=== PATIENT | female | born 1940 | race Caucasian/White ===

== ENCOUNTER 2017-07-01 09:58 | Outpatient (CLI) | payer MEDICARE, BC | END 2017-07-01 09:59 | disposition home or self-care (01) | LOC: BICRAD 09:58 | PROVIDERS: ATTEND Nurse Practitioner Family | DX: M47.26 Other spondylosis with radiculopathy, lumbar region (principal); M54.17 Radiculopathy, lumbosacral region | CPT/HCPCS: 72100 ==

== ENCOUNTER 2017-07-19 10:00 | Outpatient (CLI) | payer MEDICARE, BC ==
--- NOTE | 2017-07-19 13:50 | MRI ---
MRI LUMBAR SPINE WITHOUT CONTRAST: COMPARISON: None. CORRELATION: CT lumbar spine 06/18/16. HISTORY: Low back pain. Pain radiates down the right leg x many years. TECHNIQUE: MRI lumbar spine is performed without intravenous Gadolinium administration. Multisequential, multip lanar imaging is performed. FINDINGS: Stable leftward scoliotic curvature of the lumbar spine. Type I Modic changes involving the inferior end plate of T12, superior end plate of L1. There is appropriate T1 marrow signal intensity of the lumbar vertebrae. Vertebral body height is maintained. There is no fracture. No significant STIR h yperintensity to suggest vertebral body edema or ligamentous injury T2 hyperintensities in the left and right renal cortex likely representing small cysts. Right extrar enal pelvis and left extrarenal pelvis are noted. Symmetric signal intensity of the psoas muscles. The conus medullaris terminates at the superior aspect of L1. T12-L1: Desiccation with moderate loss of disk space height. Generalized disk bulge, ligamentum fla vum thickening, and facet hypertrophy result in mild central canal stenosis. Right neural foramen is patent. Moderate left foraminal narrowing. L1-L2: Desiccation with moderate loss of disk space height. Broad-based disk bulge, ligamentum flav um thickening, and facet hypertrophy result in moderate central canal stenosis. The right neural for amen is patent. Moderate to severe left foraminal narrowing. L2-L3: Desiccation with moderate loss of disk space height. Generalized disk bulge, ligamentum flav um thickening, and facet hypertrophy result in moderate central canal stenosis. Moderate bilateral f oraminal narrowing. L3-L4: Desiccation with severe loss of disk space height. Generalized disk bulge, ligamentum flavum thickening, and facet hypertrophy result in moderate central canal stenosis. There is narrowing of the right subarticular zone with partial obscuration of the traversing right L4 nerve root. Moderate right foraminal narrowing. Mild left foraminal narrowing. L4-L5: Desiccation with moderate loss of disk space height. Generalized disk bulge, ligamentum flav um thickening, and facet hypertrophy result in moderate central canal stenosis. Moderate right and m ild left foraminal narrowing. L5-S1: Adequate disk hydration. There is a left subarticular disk protrusion. There is complete ob scuration of traversing left S1 nerve root due to disk material. No significant stenosis of the thec al sac. Right neural foramen is patent. Moderate left foraminal narrowing. IMPRESSION: Degenerative changes of the lumbar spine as above. POS: [facility]
== END 2017-07-19 10:01 | disposition home or self-care (01) ==
LOC: SCSMRI 10:00
PROVIDERS: ATTEND Orthopaedic Surgery Orthopaedic Surgery of the Spine
DX: M47.896 Other spondylosis, lumbar region (principal); M79.606 Pain in leg, unspecified
CPT/HCPCS: 72148

== ENCOUNTER 2017-10-21 05:27 | Emergency (ER) | payer MEDICARE, BC | END 2017-10-21 06:10 | disposition left against medical advice (07) | LOC: ERS 05:27 | DX: Z53.21 Procedure and treatment not carried out due to patient leaving prior to being seen by health care provider (principal) | CPT/HCPCS: 93005 ==

== ENCOUNTER 2017-11-07 09:00 | Outpatient (CLI) | payer MEDICARE, BC | END 2017-11-07 09:01 | disposition home or self-care (01) | LOC: BICMAMMO 09:00 | PROVIDERS: ATTEND Internal Medicine | DX: Z12.31 Encounter for screening mammogram for malignant neoplasm of breast (principal); R92.1 Mammographic calcification found on diagnostic imaging of breast | CPT/HCPCS: 77063; 77067 ==

== ENCOUNTER 2018-06-25 10:50 | Outpatient (CLI) | payer MEDICARE, BC ==
--- NOTE | 2018-06-25 12:59 | RAD ---
PA AND LATERAL VIEWS CHEST: HISTORY: Shortness of breath, cough. FINDINGS: Comparison is made with the exam of 07/15/2007. The heart size is normal. The aorta is tortuous. The lungs are expanded without lobar consolidation , pneumothoraces, or pleural effusions. There are degenerative changes in the spine. IMPRESSION: No radiographic evidence of acute cardiopulmonary process. POS: [facility]
== END 2018-06-25 10:51 | disposition home or self-care (01) ==
LOC: BICRAD 10:50
PROVIDERS: ATTEND Internal Medicine Cardiovascular Disease
DX: R06.02 Shortness of breath (principal)
CPT/HCPCS: 71046

== ENCOUNTER 2018-12-26 12:36 | Emergency (ER) | payer MEDICARE, BC ==
--- NOTE | 2018-12-26 15:31 | ULT ---
LEFT LOWER EXTREMITY DOPPLER VENOUS ULTRASOUND PROVIDED CLINICAL HISTORY: Left knee pain 1 week; pain behind the left knee TECHNIQUE: Grayscale and color Doppler sonography with spectral analysis was performed of the left common femora l, femoral, popliteal, posterior tibial, greater saphenous and profunda femoral veins. FINDINGS: There is normal compression, flow and augmentation seen within the deep venous structures o f the left lower extremity. IMPRESSION: No sonographic evidence for left lower extremity deep venous thrombosis.
== END 2018-12-26 15:50 | disposition home or self-care (01) ==
LOC: ERS 12:36
DX: M25.562 Pain in left knee (principal); I49.9 Cardiac arrhythmia, unspecified; I48.91 Unspecified atrial fibrillation; F32.9 Major depressive disorder, single episode, unspecified; F41.9 Anxiety disorder, unspecified; Z79.01 Long term (current) use of anticoagulants; Z79.899 Other long term (current) drug therapy

== ENCOUNTER 2020-03-09 11:19 | Outpatient (CLI) | payer MEDICARE, BC ==
--- NOTE | 2020-03-09 13:07 | RAD ---
LEFT KNEE 4 VIEWS: Date: 03/09/2020 PROVIDED CLINICAL HISTORY: Left knee pain. FINDINGS: No comparisons. Postoperative changes of left total knee arthroplasty are demonstrated, without evidence for hardware loosening or migration. There is no evidence for fracture or other acute osseous abnormality. No sig nificant knee joint capsular distention is evident. Vascular calcifications are seen. IMPRESSION: Status post left total knee arthroplasty without evidence for hardware complication or acute osseous abnormality. POS: [facility]
== END 2020-03-09 11:20 | disposition home or self-care (01) ==
LOC: BICRAD 11:19
PROVIDERS: ATTEND Internal Medicine
DX: M25.562 Pain in left knee (principal); Z96.652 Presence of left artificial knee joint

== ENCOUNTER 2020-08-10 09:41 | Outpatient (CLI) | payer MEDICARE, BC | END 2020-08-10 09:42 | disposition home or self-care (01) | LOC: TBSIIMAG 09:41 | PROVIDERS: ATTEND Nurse Practitioner Family | DX: M47.817 Spondylosis without myelopathy or radiculopathy, lumbosacral region (principal); M47.24 Other spondylosis with radiculopathy, thoracic region; R93.7 Abnormal findings on diagnostic imaging of other parts of musculoskeletal system; M51.36 Other intervertebral disc degeneration, lumbar region; M48.061 Spinal stenosis, lumbar region without neurogenic claudication; M48.07 Spinal stenosis, lumbosacral region | CPT/HCPCS: 72146; 72148 ==

== ENCOUNTER 2021-02-17 10:45 | Outpatient (CLI) | payer MEDICARE, BC | END 2021-02-17 10:46 | disposition home or self-care (01) | LOC: BICMAMMO 10:45 | PROVIDERS: ATTEND Internal Medicine | DX: Z12.31 Encounter for screening mammogram for malignant neoplasm of breast (principal) | CPT/HCPCS: 77063; 77067 ==

== ENCOUNTER 2021-09-06 12:18 | Outpatient (CLI) | payer MEDICARE, BC | END 2021-09-06 12:19 | disposition home or self-care (01) | LOC: TBSIIMAG 12:18 | PROVIDERS: ATTEND Orthopaedic Surgery | DX: M47.26 Other spondylosis with radiculopathy, lumbar region (principal); M47.27 Other spondylosis with radiculopathy, lumbosacral region; M41.9 Scoliosis, unspecified; N28.9 Disorder of kidney and ureter, unspecified | CPT/HCPCS: 72100; 72148 ==

== ENCOUNTER 2022-03-21 10:43 | Outpatient (CLI) | payer MEDICARE, BC | END 2022-03-21 10:44 | disposition home or self-care (01) | LOC: BICMAMMO 10:43 | PROVIDERS: ATTEND Internal Medicine | DX: Z12.31 Encounter for screening mammogram for malignant neoplasm of breast (principal); R92.1 Mammographic calcification found on diagnostic imaging of breast | CPT/HCPCS: 77063; 77067 ==

== ENCOUNTER 2022-10-01 10:33 | Outpatient (CLI) | payer MEDICARE, BC | END 2022-10-01 10:34 | disposition home or self-care (01) | LOC: BICMRI 10:33 | PROVIDERS: ATTEND Specialist | DX: M51.17 Intervertebral disc disorders with radiculopathy, lumbosacral region (principal); M41.9 Scoliosis, unspecified; M48.061 Spinal stenosis, lumbar region without neurogenic claudication; M51.35 Other intervertebral disc degeneration, thoracolumbar region; M47.815 Spondylosis without myelopathy or radiculopathy, thoracolumbar region; M48.05 Spinal stenosis, thoracolumbar region; M24.28 Disorder of ligament, vertebrae; M51.36 Other intervertebral disc degeneration, lumbar region; M25.78 Osteophyte, vertebrae; M47.816 Spondylosis without myelopathy or radiculopathy, lumbar region; M51.26 Other intervertebral disc displacement, lumbar region; M47.27 Other spondylosis with radiculopathy, lumbosacral region; M48.07 Spinal stenosis, lumbosacral region | CPT/HCPCS: 72148 ==

== ENCOUNTER 2022-10-02 11:32 | Outpatient (CLI) | payer MEDICARE, BC ==
[2022-10-02 13:40] LABS: Prothrombin Time 10.4 sec (9.5-12.1)
[2022-10-02 15:07] LABS: %Lymphocytes 25.7 % (18.0-47.0); %Neutrophils 61.2 % (40.0-75.0); Hematocrit 40.6 % (34.9-44.5); Hemoglobin 13.7 g/dL (12.0-15.5); Mean Corpuscular HGB CONC 33.7 g/dL (32.0-36.0); Mean Corpuscular Hemoglobin 33.1 pg (27.0-33.0); Mean Corpuscular Volume 98.1 fl (81.6-98.3); Mean Platelet Volume 9.9 fl (7.4-10.4); Platelet Count 347 10x3/uL (130-400); RBC Distribution Width 12.3 % (11.5-14.5); Red Blood Cell (RBC) Count 4.14 10x6/uL (3.90-5.03); White Blood Cell (WBC) Count 8.1 10x3/uL (3.5-10.5)
[2022-10-02 15:08] LABS: #Basophils 0.1 10x3/uL (0.0-0.2); #Eosinphils 0.1 10x3/uL (0.0-0.5); #Monocytes 0.9 10x3/uL (0.0-1.1); #Neutrophils 4.9 10x3/uL (1.5-8.4); %Basophils 0.6 % (0.0-2.0); %Eosinophils 1.7 % (0.0-6.0); %Monocytes 10.6 % (0.0-10.0)
[2022-10-02 18:02] LABS: Anion Gap 17 mmol/L (10-20); BUN (Urea Nitrogen) 20 mg/dL (9.8-20.1); Calc. Creatinine Clearance 0 mL/min (70-130); Calcium 9.6 mg/dL (7.8-10.44); Carbon Dioxide 21 mmol/L (23-31); Chloride 100 mmol/L (98-107); Estimated GFR 58; Glucose 91 mg/dL (83-110); Potassium 4.3 mmol/L (3.5-5.1); Sodium 134 mmol/L (136-145)
== END 2022-10-02 11:33 | disposition home or self-care (01) ==
LOC: LABBT 11:32
PROVIDERS: ATTEND Orthopaedic Surgery
DX: Z01.818 Encounter for other preprocedural examination (principal); M19.011 Primary osteoarthritis, right shoulder
CPT/HCPCS: 80048; 85025; 85610; 93005; 93010

== ENCOUNTER 2022-10-04 05:45 | Observation (INO) | payer MEDICARE, BC ==
[2022-10-02 12:19] VITALS: BMI 23.9
[2022-10-04] MEDS ORDERED: CEFAZOLIN 2 GM VIAL ONE (05:56)
[2022-10-04] MEDS ORDERED: Vancomycin 1 GM/200 ML (FROZEN) BAG ONE (05:56)
[2022-10-04] MEDS ORDERED: Sodium Chloride 0.9% 200 ML ONE (05:56)
[2022-10-04] MEDS ORDERED: Tranexamic Acid 1,000 MG/10 ML VIAL ONE (05:56)
[2022-10-04] MEDS ORDERED: Ropivacaine 0.2% HCl/PF 20 ML ONE (06:48)
[2022-10-04] MEDS ORDERED: Ropivacaine 0.5% HCl/PF (150 MG/30 ML VIAL) ONE (06:48)
[2022-10-04] MEDS ORDERED: Lidocaine 1% (PF) 30 ML VIAL ONE (06:48)
[2022-10-04] MEDS ORDERED: Midazolam HCl 2 mg/2 ml Vial ONE (06:48)
[2022-10-04] MEDS ORDERED: fentaNYL 50 mcg/mL 1 mL Vial ONE ×2 (06:48→07:10)
[2022-10-04] MEDS ORDERED: Acetaminophen 325 MG TAB PO PRN (07:07)
[2022-10-04] MEDS ORDERED: Bisacodyl 10 MG SUPP PR PRN (07:07)
[2022-10-04] MEDS ORDERED: diphenhydrAMINE 50 MG CAP PO PRN (07:07)
[2022-10-04] MEDS ORDERED: traMADol HCl 50 MG TAB PO PRN ×4 (07:07→08:15)
[2022-10-04] MEDS ORDERED: Zolpidem Tartrate 5 MG TAB PO PRN ×2 (07:07→08:15)
[2022-10-04] MEDS ORDERED: HYDROcodone/Acetaminophen 10/325 mg Tablet PO PRN ×3 (07:07→08:15)
[2022-10-04] MEDS ORDERED: Milk Of Magnesia 30 ML UDCUP PO PRN (07:07)
[2022-10-04] MEDS ORDERED: Ondansetron ODT 4 MG TAB PO PRN (07:07)
[2022-10-04] MEDS ORDERED: Ondansetron PF 4 MG/2 ML Vial IVP PRN ×2 (07:07→08:15)
[2022-10-04] MEDS ORDERED: PROPOFOL 200 MG/20 ML VIAL ONE (07:32)
[2022-10-04] MEDS ORDERED: Lidocaine 1% PF 5 ML VIAL ONE (07:32)
[2022-10-04] MEDS ORDERED: Ondansetron PF 4 MG/2 ML Vial ONE (07:32)
[2022-10-04] MEDS ORDERED: Glycopyrrolate 0.2 MG/ML 5 ML SYRINGE ONE (07:32)
[2022-10-04] MEDS ORDERED: Rocuronium Bromide 10 MG/ML (10ML VIAL) ONE (07:32)
[2022-10-04] MEDS ORDERED: Succinylcholine 200 MG/10 ml SYRINGE FS ONE (07:32)
[2022-10-04] MEDS ORDERED: NEOSTIGMINE 3 MG/3 ML SYR 3 MG/3 ML SYRINGE ONE (07:32)
[2022-10-04] MEDS ORDERED: PHENYLEPHRINE-NS 100 MCG/ML 10 ML SYRINGE ONE (07:32)
[2022-10-04] MEDS ORDERED: fentaNYL 50 mcg/mL 1 mL Vial SLOW IVP PRN (08:06)
[2022-10-04] MEDS ORDERED: Promethazine HCl 25 MG/ML VIAL IM PRN ×2 (08:15→08:22)
[2022-10-04] MEDS ORDERED: Ropivacaine 0.2% 550 ML 550 ML NERVE BLCK SCH (08:15)
[2022-10-04] MEDS ORDERED: Ondansetron HCl/PF 4 MG/2 ML Vial IVP PRN (08:22)
[2022-10-04] MEDS ORDERED: HYDROmorphone 2 MG/ML VIAL SLOW IVP PRN (08:22)
[2022-10-04] MEDS ORDERED: SUGAMMADEX SODIUM 200 MG/2 ML VIAL ONE (08:49)
[2022-10-04] MEDS: Famotidine 20 MG TAB PO SCH ×2 (11:28→21:23)
[2022-10-04] MEDS: Sodium Chloride 0.9% 1,000 ML IV SCH ×2 (11:32→23:57)
[2022-10-04] MEDS: Ketorolac Tromethamine 30 MG/ML VIAL IVP SCH ×3 (12:03→23:57)
[2022-10-04] MEDS: CEFAZOLIN 2 GM in Sodium Chloride 0.9% 100 ML IVPB SCH ×2 (14:48→21:23)
[2022-10-05 04:20] VITALS: TEMP 97.9
[2022-10-05] MEDS: Ketorolac Tromethamine 30 MG/ML VIAL IVP SCH ×2 (05:46→12:20)
[2022-10-05] MEDS: HYDROcodone/Acetaminophen 10/325 mg Tablet PO PRN ×2 (05:59→12:13)
[2022-10-05] MEDS ORDERED: Ropivacaine 0.5% HCl/PF (150 MG/30 ML VIAL) ONE (08:22)
[2022-10-05 08:45] VITALS: BP 137/71
[2022-10-05] MEDS ORDERED: Famotidine 20 MG TAB PO SCH (09:00)
[2022-10-05 10:19] LABS: ALT (SGPT) 9 U/L (8-55); AST (SGOT) 13 U/L (5-34); Albumin 3.5 g/dL (3.4-4.8); Alkaline Phosphatase 34 U/L (40-110); Anion Gap 10 mmol/L (10-20); BUN (Urea Nitrogen) 20 mg/dL (9.8-20.1); Bilirubin, Total 0.9 mg/dL (0.2-1.2); Calc. Creatinine Clearance 50 mL/min (70-130); Carbon Dioxide 24 mmol/L (23-31); Chloride 100 mmol/L (98-107); Estimated GFR 70; Globulin 2.3 g/dL (2.4-3.5); Glucose 138 mg/dL (83-110); Potassium 3.7 mmol/L (3.5-5.1); Protein, Total 5.8 g/dL (5.8-8.1); Sodium 130 mmol/L (136-145)
== END 2022-10-05 13:39 | disposition home or self-care (01) ==
LOC: SDC 05:45 → SURG A 11:09
PROVIDERS: ADMIT Orthopaedic Surgery; ATTEND Orthopaedic Surgery
PROC: 0RRJ0JZ Replacement of Right Shoulder Joint with Synthetic Substitute, Open Approach (ICD-10-PCS; principal; 2022-10-04)
PROC: 0LS30ZZ Reposition Right Upper Arm Tendon, Open Approach (ICD-10-PCS; 2022-10-04)
DX: M19.011 Primary osteoarthritis, right shoulder (principal); I48.91 Unspecified atrial fibrillation; E78.5 Hyperlipidemia, unspecified; I10 Essential (primary) hypertension; G47.00 Insomnia, unspecified; K21.9 Gastro-esophageal reflux disease without esophagitis; Z90.49 Acquired absence of other specified parts of digestive tract; Z90.710 Acquired absence of both cervix and uterus; Z98.49 Cataract extraction status, unspecified eye; Z98.51 Tubal ligation status; Z98.890 Other specified postprocedural states; Z88.8 Allergy status to other drugs, medicaments and biological substances; Z79.899 Other long term (current) drug therapy
CPT/HCPCS: 23430; 23472; 80053; 82306; 82310; 83970; 97110; 97116 ×2; 97535; A4306; C1713 ×6; C1776 ×4; J3010; J3370; 36415; J1885; J2001; J2250; J2405; J2704; J2795; J3490; J7050; Q0162

== ENCOUNTER 2022-12-27 08:20 | Outpatient (CLI) | payer MEDICARE, BC | END 2022-12-27 08:21 | disposition home or self-care (01) | LOC: BICCT 08:20 | PROVIDERS: ATTEND Family Medicine | DX: Q61.02 Congenital multiple renal cysts (principal); Q44.6 Cystic disease of liver | CPT/HCPCS: 74178; 82565 ==

== ENCOUNTER 2023-04-08 09:56 | Outpatient (CLI) | payer MEDICARE | END 2023-04-08 09:57 | disposition home or self-care (01) | LOC: BICMAMMO 09:56 | PROVIDERS: ATTEND Family Medicine | DX: Z12.31 Encounter for screening mammogram for malignant neoplasm of breast (principal) | CPT/HCPCS: 77063; 77067 ==

== ENCOUNTER 2023-07-10 11:03 | Outpatient (CLI) | payer MEDICARE | END 2023-07-10 11:04 | disposition home or self-care (01) | LOC: BICMAMMO 11:03 | PROVIDERS: ATTEND Internal Medicine Rheumatology | DX: M81.0 Age-related osteoporosis without current pathological fracture (principal); M85.851 Other specified disorders of bone density and structure, right thigh; M85.852 Other specified disorders of bone density and structure, left thigh | CPT/HCPCS: 77080 ==

== ENCOUNTER 2023-09-05 09:59 | Outpatient (CLI) | payer MEDICARE | END 2023-09-05 10:00 | disposition home or self-care (01) | LOC: BICCT 09:59 | PROVIDERS: ATTEND Family Medicine | DX: N28.1 Cyst of kidney, acquired (principal); K76.89 Other specified diseases of liver; R10.9 Unspecified abdominal pain; N28.9 Disorder of kidney and ureter, unspecified; I70.90 Unspecified atherosclerosis; M41.9 Scoliosis, unspecified; M47.815 Spondylosis without myelopathy or radiculopathy, thoracolumbar region | CPT/HCPCS: 74178 ==

== ENCOUNTER 2024-11-17 09:45 | Outpatient (CLI) | payer MEDICARE ==
[2024-11-17] MEDS ORDERED: Iopamidol 370 76% 100 ML VIAL ONE (10:18)
[2024-11-17 10:37] LABS: Estimated GFR - POC 55.0
== END 2024-11-17 09:46 | disposition home or self-care (01) ==
LOC: CT 09:45
PROVIDERS: ATTEND Internal Medicine Gastroenterology
DX: K21.9 Gastro-esophageal reflux disease without esophagitis (principal); R10.32 Left lower quadrant pain; N80.9 Endometriosis, unspecified; K83.8 Other specified diseases of biliary tract; K76.89 Other specified diseases of liver; K57.30 Diverticulosis of large intestine without perforation or abscess without bleeding; K44.9 Diaphragmatic hernia without obstruction or gangrene; K40.90 Unilateral inguinal hernia, without obstruction or gangrene, not specified as recurrent; M41.9 Scoliosis, unspecified; M47.815 Spondylosis without myelopathy or radiculopathy, thoracolumbar region; Z90.710 Acquired absence of both cervix and uterus; Z90.49 Acquired absence of other specified parts of digestive tract; Z98.890 Other specified postprocedural states
CPT/HCPCS: 36415; 74177; 82565